=== PATIENT | male | born 1990 | race Caucasian/White ===

== ENCOUNTER 2019-12-05 18:18 | Emergency (ER) | payer OTHER, MEDICAID, SELFPAY ==
[2019-12-05 18:31] VITALS: BP 140/70; PULSE 68; RESP 16; TEMP 36.1; O2SAT 98; BMI 35.9
--- NOTE | 2019-12-05 19:18 | ED.GENADULT ---
HPI - General Adult General Chief complaint: Abdominal Pain Stated complaint: KIDNEY STONES Time Seen by Provider: 12/05/19 18:23 Source: patient Mode of arrival: Ambulatory Limitations: no limitations History of Present Illness HPI narrative: 29-year-old male here for evaluation of what he thinks is a left-sided kidney stone. He states he has never had kidney stones in the past however earlier today he had a fairly sudden onset of left-sided flank pain. Had some nausea and vomiting. No fevers. He stated that when he was waiting in line at the [place] [facility] to come to the hospital for evaluation he went and urinated as stated that he felt like something came out. Since that time he has had some discomfort on the left side but much better than what it was earlier in the day. Related Data Previous Rx's Medication Instructions Recorded cephalexin [Keflex] 500 mg PO QID #28 cap 11/12/16 Allergies Allergy/AdvReac Type Severity Reaction Status Date / Time No Known Allergies Allergy Uncoded 06/17/17 13:02 Review of Systems Constitutional Constitutional: Denies fever(s) Cardiovascular Cardiovascular: Denies chest pain and Denies dyspnea Respiratory Respiratory: Denies dyspnea Gastrointestinal Gastrointestinal: Reports abdominal pain, Denies change in bowel habits, Reports nausea and Reports vomiting Genitourinary Genitourinary: Reports urinary hesitancy and Reports urinary urgency Genitourinary: Reports urinary hesitancy and Reports urinary urgency Musculoskeletal Comments: Left-sided flank pain Integumentary/Breasts Skin/Breast: Denies lesions and Denies rash Neurologic Neurologic: Denies behavioral changes Psychiatric Psychiatric: Denies behavioral changes Hematologic/Lymphatic Hematologic/Lymphatic: Denies easy bleeding and Denies easy bruising Allergic/Immunologic Allergic/Immunologic: Denies urticaria Patient History Medical History Asperger's disorder (08/20/15) Generalized anxiety disorder (08/20/15) Moderate episode of recurrent major depressive disorder (08/20/15) Panic attack (08/20/15) Social History Smoking Status: Never smoker Smoking Status: Never smoker alcohol intake frequency: 0-2 drinks per day Substance Use Type: does not use Exam Initial Vital Signs Initial Vital Signs: Vital Signs Temperature 96.9 F L 12/05/19 18:31 Pulse Rate 68 12/05/19 18:31 Respiratory Rate 16 12/05/19 18:31 Blood Pressure 140/70 12/05/19 18:31 Pulse Oximetry 98 12/05/19 18:31 Const General: cooperative and comfortable Limitations: mental status not altered HENMT Head: normal to inspection and normocephalic Resp Effort & Inspection: normal respiratory effort Auscultation: clear to auscultation bilaterally Cardio Rate: regular rate Rhythm: regular rhythm GI Inspection: non-distended Palpation: soft, No firm and No tender Back/Spine/Pelvis Back: No CVA tenderness Skin Lesions: no lesions Rashes: no rashes Neuro General: patient alert and patient awake Cognition: normal cognition Speech: speech normal Extrem General: normal to inspection and capillary refill normal Psych Appearance: grossly normal and well kempt Course Orders Ordered: ED Orders 12/05/19 19:14 Urine Microscopic Stat 12/05/19 19:18 CT kidney ureter bladder (KUB) Stat 12/05/19 19:27 Basic Metabolic Panel Stat Complete Blood Count AUTO DIFF Stat Vital Signs Vital signs: Vital Signs - 8 hr 12/05/19 18:31 12/05/19 20:08 Temperature 96.9 F L Pulse Rate 68 72 Respiratory Rate 16 14 Blood Pressure 140/70 Pulse Oximetry 98 99 Medical Decision Making Lab Data Lab results reviewed: Yes I reviewed the patient's lab results. Result diagrams: 12/05/19 19:27 12/05/19 19:27 Labs: Lab Results 12/05/19 12/05/19 12/05/19 Range/Units 19:14 19:27 19:27 WBC 14.5 H (4.5-11.0) X10^3/uL RBC 5.38 (4.5-5.9) X10^6/uL Hgb 15.6 (13.5-17.5) g/dL Hct 47.3 (41-53) % MCV 87.9 (80-100) fL MCH 29.1 (26-34) PG MCHC 33.1 (30-36) % RDW 13.7 (11.6-14.8) % Plt Count 192 (150-400) X10^3/uL Neut % (Auto) 78.7 H (50-75) % Lymph % (Auto) 17.2 L (25-40) % [place] % (Auto) 3.4 (3-14) % Eos % (Auto) 0.2 L (2-4) % Baso % (Auto) 0.5 (0-2) % Neut # (Auto) 21415 H (0995-1427) /uL Lymph # (Auto) 2500 (8723-9288) /uL [place] # (Auto) 500 (0-900) /uL Eos # (Auto) 0 (0-450) /uL Baso # (Auto) 100 (0-100) /uL Sodium 139 (137-145) mmol/L Potassium 4.3 (3.4-5.1) mmol/L Chloride 102 (98-107) mmol/L Carbon Dioxide 28 (22-32) mmol/L BUN 12 (9-20) mg/dL Creatinine 0.83 (0.66-1.25) mg/dL Estimated GFR > 60.0 (>60) mL/min BUN/Creatinine Ratio 14.5 (6-22) Glucose 115 H (70-100) mg/dL Calcium 9.4 (8.4-10.2) mg/dL Urine RBC >100/hpf H (0-5/HPF) Urine WBC 0-1/hpf (0-5/HPF) Ur Squamous Epith Cells 0-1 /hpf (0-5/HPF) Urine Bacteria None seen (None) Ur Culture Indicated? Cult not indicated Urine Dip Bedside Urine Glucose Negative Bedside Urine Bilirubin - Negative Bedside Urine Ketone - Negative Urine Specific [place] 1.015 Bedside Urine Occult Blood +++ Bedside Urine pH 7.0 Bedside Urine Protein - Negative Bedside Urine Urobilinogen - Negative Bedside Urine Nitrite - Negative Bedside Urine Leukocytes - Negative Esterase Point of care testing: Urine Dip Bedside Urine Glucose Negative Bedside Urine Bilirubin - Negative Bedside Urine Ketone - Negative Urine Specific [place] 1.015 Bedside Urine Occult Blood +++ Bedside Urine pH 7.0 Bedside Urine Protein - Negative Bedside Urine Urobilinogen - Negative Bedside Urine Nitrite - Negative Bedside Urine Leukocytes - Negative Esterase Imaging Data CT scan - abdomen/pelvis: Radiologist's Impression: [address] [address] [address] Scan Report Signed Patient: Yoni Griffin [facility]#: [id number] : 1990Acct:[id number] Age/Sex: 29 / MDate of Service: 12/05/19 Loc: ED Accession Number: [id number] Procedure: CT kidney ureter bladder (KUB) Ordering Provider: Gennaro Beal D.O. PROCEDURE: CT KIDNEY URETER BLADDER (KUB) INDICATIONS: concern for L sided stone TECHNIQUE: Noncontrast 5 mm thick sections acquired from the diaphragms to the symphysis. 5 mm thick coronal and sagittal reformats were then performed. For radiation dose reduction, the following was used: automated exposure control, adjustment of mA and/or kV according to patient size. COMPARISON: None. FINDINGS: Image quality: Excellent. Lung bases: Lung bases are clear. Heart size is normal. Urinary system: Mild left ureteral dilatation and periureteric fat stranding without obstructing calculus. Right ureter is unremarkable. Both kidneys are normal in appearance. Other solid organs: Moderate to severe hepatic steatosis. Normal appearance of the liver, spleen, gallbladder, pancreas, and adrenal glands otherwise. Peritoneum and bowel: Unenhanced bowel loops demonstrate normal wall thickness and caliber. No free fluid or air. Nodes and vessels: No retroperitoneal or mesenteric adenopathy by size criteria. Aorta and inferior vena cava are normal in caliber. Abdominal wall: No ventral hernias. Pelvis: No free pelvic fluid. No inguinal hernias or adenopathy. Bones: No suspicious bony lesions. No vertebral body compression fractures. IMPRESSION: Trace dilatation of the left ureter with adjacent fat stranding. Findings may represent a recently passed stone. There is no evidence of urinary tract calculus currently. Dictated by: Lele Lopez M.D. on 12/05/2019 at 19:39 Approved by: Lele Lopez M.D. on 12/05/2019 at 19:42 MDM Narrative Medical decision making narrative: Urine shows blood but no signs of infection, kidney functions unremarkable, does have a leukocytosis however feel this is not caused by an infection. No source of infection is found on exam. No fevers. I suspect that he passed the stone when he use the restroom in route to the emergency department. The CT scan shows findings consistent with a recently passed stone on the left. This fits symptoms. Patient was given return precautions and follow-up instructions. I feel we can hold on further workup for now. He expressed understanding and agreement. Discharge Plan Departure Patient Disposition: Home Clinical Impression: Renal colic on left side Discharge Date/Time: 12/05/19 20:09 Instructions: Kidney Stones -- Adult Activity Restrictions/Additional Instructions: I would expect you to be sore for the next day. You can also have some blood tinge to your urine for the next day. All of this should improve. Contact your primary provider for follow-up. Return to the emergency department for any new or worsening symptoms. You have no restrictions on your diet or activity. Prescriptions: No Action cephalexin [Keflex] 500 MG capsule 500 mg PO QID Qty: 28 RF: 0
[2019-12-05 19:33] LABS: Bacteria Urine None Seen
[2019-12-05 19:38] LABS: Add Manual Diff / Slide Review NO; Basophils Absolute Auto 100 /uL (0-100); Basophils Percent Auto 0.5 % (0-2); Eosinophils Absolute Auto 0 /uL (0-450); Eosinophils Percent Auto 0.2 % (2-4); Hematocrit 47.3 % (41-53); Hemoglobin 15.6 g/dL (13.5-17.5); Lymphocytes Absolute Auto 2500 /uL (1100-4500); Lymphocytes Percent Auto 17.2 % (25-40); Mean Corpuscular HGB Conc 33.1 % (30-36); Mean Corpuscular Hemoglobin 29.1 PG (26-34); Mean Corpuscular Volume 87.9 fL (80-100); Monocytes Absolute Auto 500 /uL (0-900); Monocytes Percent Auto 3.4 % (3-14); Neutrophils Absolute Auto 11400 /uL (1500-7000); Neutrophils Percent Auto 78.7 % (50-75); Platelet Count 192 X10^3/uL (150-400); Red Blood Cell Count 5.38 X10^6/uL (4.5-5.9); Red Cell Distribution Width 13.7 % (11.6-14.8); White Blood Cell Count 14.5 X10^3/uL (4.5-11.0)
[2019-12-05 19:48] LABS: Culture Indicated Urine Cult Not Indicated; RBC Urine >100/HPF (0-5/HPF); Squamous Epithelial Cell Urine 0-1 /HPF (0-5/HPF); WBC Urine 0-1/HPF (0-5/HPF)
[2019-12-05 19:49] LABS: BUN Creatinine Ratio 14.5 (6-22); Blood Urea Nitrogen 12 mg/dL (9-20); Calcium 9.4 mg/dL (8.4-10.2); Carbon Dioxide 28 mmol/L (22-32); Chloride 102 mmol/L (98-107); Estimated Glomerular Filt Rate > 60.0 mL/min (>60); Glucose 115 mg/dL (70-100); HEMOLYSIS < 15 (0-50); Potassium 4.3 mmol/L (3.4-5.1); Sodium 139 mmol/L (137-145)
[2019-12-05 20:08] VITALS: PULSE 72; RESP 14; O2SAT 99
== END 2019-12-05 20:09 | disposition home or self-care (01) ==
PROVIDERS: Emergency Provider Emergency Medicine
DX: N23 Unspecified renal colic (principal)
CPT/HCPCS: 36415; 74176; 80048; 81003; 81015; 85025; 99283

== ENCOUNTER 2021-10-27 12:18 | Emergency (ER) | payer OTHER, MEDICAID, SELFPAY ==
[2021-10-27 12:27] VITALS: BP 134/76; PULSE 78; RESP 18; TEMP 36.6; O2SAT 100; BMI 33.5
--- NOTE | 2021-10-27 12:34 | DI.RAD.S_ITS ---
PROCEDURE: XR CHEST 1V INDICATIONS: chest pain TECHNIQUE: One view of the chest was acquired. COMPARISON: None. FINDINGS: Surgical changes and devices: None. Lungs and pleura: Lungs are clear. No pleural effusions or pneumothorax. Mediastinum: Mediastinal contours appear normal. Heart size is normal. Bones and chest wall: No suspicious bony lesions. Overlying soft tissues appear unremarkable. IMPRESSION: No acute cardiopulmonary findings Approved by: Jagjit Rodriguez M.D. on 10/27/2021 at 12:46
[2021-10-27 13:02] LABS: Add Manual Diff / Slide Review NO; Basophils Absolute Auto 100 /uL (0-100); Basophils Percent Auto 0.6 % (0-2); Eosinophils Absolute Auto 400 /uL (0-450); Eosinophils Percent Auto 3.3 % (2-4); Hematocrit 46.9 % (41-53); Hemoglobin 16.1 g/dL (13.5-17.5); Lymphocytes Absolute Auto 3200 /uL (1100-4500); Lymphocytes Percent Auto 30.1 % (25-40); Mean Corpuscular HGB Conc 34.2 % (30-36); Mean Corpuscular Hemoglobin 29.6 PG (26-34); Mean Corpuscular Volume 86.4 fL (80-100); Monocytes Absolute Auto 600 /uL (0-900); Monocytes Percent Auto 5.4 % (3-14); Neutrophils Absolute Auto 6500 /uL (1500-7000); Neutrophils Percent Auto 60.6 % (50-75); Platelet Count 165 X10^3/uL (150-400); Red Blood Cell Count 5.43 X10^6/uL (4.5-5.9); Red Cell Distribution Width 13.4 % (11.6-14.8); White Blood Cell Count 10.7 X10^3/uL (4.5-11.0)
[2021-10-27 13:09] LABS: Alanine Aminotransferase 55 IU/L (<50); Albumin 4.7 g/dL (3.5-5.0); Albumin Globulin Ratio 1.3 (1.0-2.8); Alkaline Phosphatase 81 U/L (38-126); Aspartate Aminotransferase 44 IU/L (17-59); Bilirubin Total 1.1 mg/dL (0.2-1.3); Blood Urea Nitrogen 12 mg/dL (9-20); Calcium 9.2 mg/dL (8.4-10.2); Carbon Dioxide 23 mmol/L (22-32); Chloride 105 mmol/L (98-107); Creatine Kinase 57 U/L (55-170); Estimated Glomerular Filt Rate > 60 mL/min (>60); Globulin 3.6 g/dL (1.7-4.1); Glucose 111 mg/dL (70-100); Lipase 65 U/L (23-300); Sodium 141 mmol/L (137-145); Total Protein 8.3 g/dL (6.3-8.2)
[2021-10-27 13:13] LABS: HEMOLYSIS 105 (0-50)
[2021-10-27 13:21] LABS: Troponin I < 0.012 ng/mL (0.01-0.034)
[2021-10-27 16:07] VITALS: BP 158/96; PULSE 61; RESP 18; O2SAT 100
--- NOTE | 2021-10-27 16:34 | ED_ITS ---
HPI - Chest Pain <Sinan Al PA-C - Last Filed: 10/27/21 20:04> General Chief Complaint: Chest Pain Stated Complaint: Chest Discomfort Time Seen by Provider: 10/27/21 13:37 Source: patient Mode of arrival: Ambulatory Limitations: no limitations History of Present Illness HPI narrative: Patient is a 31-year-old male who presents to the emergency room today with complaint discomfort that started yesterday afternoon while he was at an event in with his mother. Describes the discomfort as a tightness in his chest it was not pain and did not radiate. [place] like something was there yet to breathe around. Called EMT at about 5:00 p.m. and the EMT arrived and evaluated him. Did not receive any of the medicines for pain and the discomfort totally resolved after BMT left. Now feels fine has no discomfort difficulty breathing with labs or concerns. Denies history of cardiac disease or this type of chest discomfort and has. Does admit to having low dad are and 1/2 brother with heart disease. Denies any other concerns at this time. Related Data Previous Rx's Medication Instructions Recorded cephalexin 500 mg capsule (Keflex) 500 mg PO QID #28 caps 11/12/16 Allergies Allergy/AdvReac Type Severity Reaction Status Date / Time No Known Allergies Allergy Uncoded 06/17/17 13:02 Review of Systems <Sinan Al PA-C - Last Filed: 10/27/21 20:04> Review of Systems Narrative: R.O.S.: General: No fever, chills or fatigue. Cardiovascular: No chest pain or palpitations Respiratory: No S.O.B. HEENT: No congestion, ear pain, rhinorrhea, sore throat or tinnitus Gastrointestinal: No nausea or vomiting Skin: No rash or associated abnormalities Neurological: Awake, alert and in not apparent distress. No Headaches, changes in vision or other related neurological concerns. Patient History <Sinan Al PA-C - Last Filed: 10/27/21 20:04> Medical History (Updated 10/27/21 @ 17:33 by Sinan Al PA-C) Asperger's disorder (08/20/15) Generalized anxiety disorder (08/20/15) Moderate episode of recurrent major depressive disorder (08/20/15) Panic attack (08/20/15) Social History Smoking Status: Never smoker Smoking Status: Never smoker alcohol intake frequency: 0-2 drinks per day Substance Use Type: does not use Exam <Sinan Al PA-C - Last Filed: 10/27/21 20:04> Narrative Exam Narrative: Physical Exam: ? General: normal appearance, well developed, well nourished, alert, and awake. Not in acute distress. ? Head: Normocephalic, no lesions. Chest: Lungs CTAB, no rales, rhonchi or wheezes. ?? Heart: RRR, no murmurs, rubs or gallops. Eyes: PERRLA, EOM's full, conjunctivae clear. ? Neuro: Physiological, no localizing findings, CN3-12 intact. ?? Extremities: Warm, well perfused, FROM, no deformities, no edema. ?? Skin: Normal, no rashes, no lesions noted. ?? PSYCHIATRIC: The mood is good, no blunted affect. Speech is clear. Thought process is linear, thought content is appropriate. The voice is without significant inflection. Initial Vital Signs Initial Vital Signs: Vital Signs Temperature 97.8 F 10/27/21 12:27 Pulse Rate 78 10/27/21 12:27 Respiratory Rate 18 10/27/21 12:27 Blood Pressure 134/76 10/27/21 12:27 Pulse Oximetry 100 10/27/21 12:27 Oxygen Delivery Method 10/27/21 12:27 <Donald Torres DO - Last Filed: 10/29/21 13:16> Initial Vital Signs Initial Vital Signs: Vital Signs Temperature 97.8 F 10/27/21 12:27 Pulse Rate 78 10/27/21 12:27 Respiratory Rate 18 10/27/21 12:27 Blood Pressure 134/76 10/27/21 12:27 Pulse Oximetry 100 10/27/21 12:27 Oxygen Delivery Method 10/27/21 12:27 Course <Sinan Al PA-C - Last Filed: 10/27/21 20:04> Orders Ordered: ED Orders 10/27/21 12:34 XR chest 1V Stat 10/27/21 12:41 Complete Blood Count AUTO DIFF Stat Comprehensive Metabolic Panel Stat Lipase Stat Magnesium Stat Troponin & CK Cardiac Panel Stat 10/27/21 12:55 EKG-12 Lead Stat Vital Signs Vital signs: Vital Signs - 8 hr 10/27/21 12:27 10/27/21 16:07 10/27/21 16:50 Temperature 97.8 F Pulse Rate 78 61 67 Respiratory Rate 18 18 18 Blood Pressure 134/76 158/96 H 124/95 H Pulse Oximetry 100 100 100 Oxygen Delivery Method Room Air Room Air Room Air 10/27/21 18:05 Temperature Pulse Rate 60 Respiratory Rate 16 Blood Pressure 150/85 H Pulse Oximetry 99 Oxygen Delivery Method Room Air <Donald Torres DO - Last Filed: 10/29/21 13:16> Orders Ordered: ED Orders 10/27/21 12:34 XR chest 1V Stat 10/27/21 12:41 Complete Blood Count AUTO DIFF Stat Comprehensive Metabolic Panel Stat Lipase Stat Magnesium Stat Troponin & CK Cardiac Panel Stat 10/27/21 12:55 EKG-12 Lead Stat Vital Signs Vital signs: Vital Signs - 8 hr 10/27/21 12:27 10/27/21 16:07 10/27/21 16:50 Temperature 97.8 F Pulse Rate 78 61 67 Respiratory Rate 18 18 18 Blood Pressure 134/76 158/96 H 124/95 H Pulse Oximetry 100 100 100 Oxygen Delivery Method Room Air Room Air Room Air 10/27/21 18:05 Temperature Pulse Rate 60 Respiratory Rate 16 Blood Pressure 150/85 H Pulse Oximetry 99 Oxygen Delivery Method Room Air MDM - Chest Pain <Sinan Al PA-C - Last Filed: 10/27/21 20:04> Lab Data Result diagrams: 10/27/21 12:41 10/27/21 12:41 Labs: Lab Results 10/27/21 10/27/21 Range/Units 12:41 12:41 WBC 10.7 (4.5-11.0) X10^3/uL RBC 5.43 (4.5-5.9) X10^6/uL Hgb 16.1 (13.5-17.5) g/dL Hct 46.9 (41-53) % MCV 86.4 (80-100) fL MCH 29.6 (26-34) PG MCHC 34.2 (30-36) % RDW 13.4 (11.6-14.8) % Plt Count 165 (150-400) X10^3/uL Neut % (Auto) 60.6 (50-75) % Lymph % (Auto) 30.1 (25-40) % [place] % (Auto) 5.4 (3-14) % Eos % (Auto) 3.3 (2-4) % Baso % (Auto) 0.6 (0-2) % Neut # (Auto) 6500 (8409-4395) /uL Lymph # (Auto) 3200 (6868-4797) /uL [place] # (Auto) 600 (0-900) /uL Eos # (Auto) 400 (0-450) /uL Baso # (Auto) 100 (0-100) /uL Sodium 141 (137-145) mmol/L Potassium 5.0 (3.4-5.1) mmol/L Chloride 105 (98-107) mmol/L Carbon Dioxide 23 (22-32) mmol/L BUN 12 (9-20) mg/dL Creatinine 0.75 (0.66-1.25) mg/dL Estimated GFR > 60 (>60) mL/min BUN/Creatinine Ratio 16.0 (6-22) Glucose 111 H (70-100) mg/dL Calcium 9.2 (8.4-10.2) mg/dL Magnesium 2.0 (1.6-2.3) mg/dL Total Bilirubin 1.1 (0.2-1.3) mg/dL AST 44 (17-59) IU/L ALT 55 H (<50) IU/L Alkaline Phosphatase 81 (38-126) U/L Total Creatine Kinase 57 (55-170) U/L CK-MB (CK-2) TNP CK-MB (CK-2) Rel Index TNP Troponin I < 0.012 (0.01-0.034) ng/mL Total Protein 8.3 H (6.3-8.2) g/dL Albumin 4.7 (3.5-5.0) g/dL Globulin 3.6 (1.7-4.1) g/dL Albumin/Globulin Ratio 1.3 (1.0-2.8) Lipase 65 (23-300) U/L Imaging Data Chest x-ray: Radiologist's Impression: PROCEDURE:? XR CHEST 1V ? INDICATIONS:? chest pain ? TECHNIQUE:? One view of the chest was acquired.? ? COMPARISON:? None. ? FINDINGS:? ? Surgical changes and devices:? None.? ? Lungs and pleura:? Lungs are clear.? No pleural effusions or pneumothorax.? ? Mediastinum:? Mediastinal contours appear normal.? Heart size is normal.? ? Bones and chest wall:? No suspicious bony lesions.? Overlying soft tissues appear unremarkable.? ? IMPRESSION:? No acute cardiopulmonary findings ? ? ? Approved by: Jagjit Rodriguez M.D. on 10/27/2021 at 12:46? MDM Narrative Medical decision making narrative: Patient is a 31-year-old male who presents to the emergency room today with complaint of resolved chest discomfort. Chest discomfort starting yesterday around 3:00 p.m. paramedics were called no interventions were done except for diagnostics in physical exam. Patient reports to the emergency room today because he was told to follow up in emergency room by the paramedics. Otherwise has no concerns. Chest from today an impression of no acute cardiopulmonary findings. ECG was unremarkable with NSR. Physical exam was unremarkable. Patient is to history of anxiety and depression could have been associated with this event. Advised patient to follow-up with his PCP for any non urgent emerge nt concerns. Patient advised to return to the emergency room should any emergent concerns arise. To include shortness of breath or her chest pain. Patient agrees with plan. <Donald Torres, DO - Last Filed: 10/29/21 13:16> Lab Data Labs: Lab Results 10/27/21 10/27/21 Range/Units 12:41 12:41 WBC 10.7 (4.5-11.0) X10^3/uL RBC 5.43 (4.5-5.9) X10^6/uL Hgb 16.1 (13.5-17.5) g/dL Hct 46.9 (41-53) % MCV 86.4 (80-100) fL MCH 29.6 (26-34) PG MCHC 34.2 (30-36) % RDW 13.4 (11.6-14.8) % Plt Count 165 (150-400) X10^3/uL Neut % (Auto) 60.6 (50-75) % Lymph % (Auto) 30.1 (25-40) % [place] % (Auto) 5.4 (3-14) % Eos % (Auto) 3.3 (2-4) % Baso % (Auto) 0.6 (0-2) % Neut # (Auto) 6500 (9782-2412) /uL Lymph # (Auto) 3200 (3504-3904) /uL [place] # (Auto) 600 (0-900) /uL Eos # (Auto) 400 (0-450) /uL Baso # (Auto) 100 (0-100) /uL Sodium 141 (137-145) mmol/L Potassium 5.0 (3.4-5.1) mmol/L Chloride 105 (98-107) mmol/L Carbon Dioxide 23 (22-32) mmol/L BUN 12 (9-20) mg/dL Creatinine 0.75 (0.66-1.25) mg/dL Estimated GFR > 60 (>60) mL/min BUN/Creatinine Ratio 16.0 (6-22) Glucose 111 H (70-100) mg/dL Calcium 9.2 (8.4-10.2) mg/dL Magnesium 2.0 (1.6-2.3) mg/dL Total Bilirubin 1.1 (0.2-1.3) mg/dL AST 44 (17-59) IU/L ALT 55 H (<50) IU/L Alkaline Phosphatase 81 (38-126) U/L Total Creatine Kinase 57 (55-170) U/L CK-MB (CK-2) TNP CK-MB (CK-2) Rel Index TNP Troponin I < 0.012 (0.01-0.034) ng/mL Total Protein 8.3 H (6.3-8.2) g/dL Albumin 4.7 (3.5-5.0) g/dL Globulin 3.6 (1.7-4.1) g/dL Albumin/Globulin Ratio 1.3 (1.0-2.8) Lipase 65 (23-300) U/L Discharge Plan Departure Patient Disposition: Home Clinical Impression: Atypical chest pain Instructions: DI for Chest Pain Activity Restrictions/Additional Instructions: *You have been diagnosed with [resolved chest discomfort of unknown etiology.] During your stay today in the emergency room we ordered receive the results from chest film and labs are negative in relation to the origin of his chest discomfort. Physical exam was also unremarkable. Per our discussion I suggest you follow-up with your the care provider with any non urgent emergent concerns. I suggested he return to the emergency room should any emergent concerns arise to include return of chest discomfort shortness of breath difficulty ascending or descending stairs or any other related concerns. *What to do: *Please continue to take your regular medications as directed. [ ] New medication prescriptions sent to your pharmacy: [ ] [ ] New medication written as a paper prescription [x] No new medications given *Please follow up with your primary care provider in 2-3 days, call for an appointment. Let them know you were seen in the Emergency Department and that we ask that you be seen in follow up. We will electronically transmit a record of today's note if your PCP is in our system *If you do not have a primary care provider please contact the [facility] Resource line at [phone]. They will ask some questions about your medical history and help get you set up with a doctor in the community. *Return to Emergency Department if you should have any new, worsening or concerning symptoms, such as [fever greater than 101 F, shaking chills, worsening pain, persistent vomiting or other bothersome symptoms] Prescriptions: No Action cephalexin [Keflex] 500 MG capsule 500 mg PO QID Qty: 28 0RF Referrals: Aliyah Zimmerman ARNP [Primary Care Provider] - Visit Report Forms: Patient Portal/API <Donald Torres DO - Last Filed: 10/29/21 13:16> [facility] Isaura Attestation: I was immediately available in the department for consultation. Documentation has been reviewed. I agree with assessment and plan.
[2021-10-27 16:50] VITALS: BP 124/95; PULSE 67; RESP 18; O2SAT 100
--- NOTE | 2021-10-27 18:04 | PC.NURSE ---
assessment done by provider
[2021-10-27 18:05] VITALS: BP 150/85; PULSE 60; RESP 16; O2SAT 99
== END 2021-10-27 18:07 | disposition home or self-care (01) ==
PROVIDERS: Emergency Medicine; Emergency Provider Physician Assistant; PCP Nurse Practitioner
DX: R07.89 Other chest pain (principal)
CPT/HCPCS: 71045; 80053; 82550; 83690; 83735; 84484; 85025; 93005; 99283; 99284

== ENCOUNTER 2022-10-23 11:14 | Emergency (ER) | payer OTHER, MEDICAID, SELFPAY ==
[2022-10-23] VITALS (10 sets, daily range): BP systolic 132–145; BP diastolic 65–82; PULSE 56–69; RESP 15; TEMP 36.3; O2SAT 98–99; BMI 37.3
--- NOTE | 2022-10-23 11:19 | DI.RAD.S_ITS ---
PROCEDURE: XR CHEST 1V INDICATIONS: chest pain TECHNIQUE: One view of the chest was acquired. COMPARISON: [facility], CR, XR CHEST 1V, 10/27/2021, 12:46. FINDINGS: Surgical changes and devices: None. Lungs and pleura: Lungs are clear. No pleural effusions or pneumothorax. Mediastinum: Mediastinal contours appear normal. Heart size is normal. Bones and chest wall: No suspicious bony lesions. Overlying soft tissues appear unremarkable. IMPRESSION: No acute cardiopulmonary process. Dictated by: Joselito Ledezma M.D. on 10/23/2022 at 11:57 Approved by: Joselito Ledezma M.D. on 10/23/2022 at 11:58
--- NOTE | 2022-10-23 11:26 | ED.CHESTPAIN ---
HPI - Chest Pain General Chief Complaint: Chest Pain Stated Complaint: chest discomfort t-1 Time Seen by Provider: 10/23/22 11:26 Source: patient Mode of arrival: Ambulatory Limitations: no limitations Related Data Previous Rx's Medication Instructions Recorded cephalexin 500 mg capsule (Keflex) 500 mg PO QID #28 caps 11/12/16 Allergies Allergy/AdvReac Type Severity Reaction Status Date / Time No Known Drug Allergies Allergy Verified 10/23/22 11:17 Patient History Medical History (Updated 11/11/21 @ 00:00 by ) Asperger's disorder (08/20/15) Generalized anxiety disorder (08/20/15) Moderate episode of recurrent major depressive disorder (08/20/15) Panic attack (08/20/15) Social History Smoking Status: Never smoker Smoking Status: Never smoker alcohol intake frequency: holidays/special occasions only Substance Use Type: does not use Exam Initial Vital Signs Initial Vital Signs: Vital Signs Temperature 97.3 F L 10/23/22 11:17 Pulse Rate 69 10/23/22 11:17 Respiratory Rate 15 10/23/22 11:17 Blood Pressure 134/72 10/23/22 11:17 Pulse Oximetry 99 10/23/22 11:17 Oxygen Delivery Method Room Air 10/23/22 11:17 Course Orders Ordered: ED Orders 10/23/22 11:19 XR chest 1V Stat Complete Blood Count AUTO DIFF Stat Comprehensive Metabolic Panel Stat Lipase Stat Magnesium Stat PTT Partial Thromboplastin [place] Stat Prothrombin Time INR Stat Troponin & CK Cardiac Panel Stat EKG-12 Lead Stat Discontinued Medications Aspirin (Aspirin 81 Mg Chew Tab) 324 mg PO NOW ONE Stop: 10/23/22 11:20 Vital Signs Vital signs: Vital Signs - 8 hr 10/23/22 11:17 Temperature 97.3 F L Pulse Rate 69 Respiratory Rate 15 Blood Pressure 134/72 Pulse Oximetry 99 Oxygen Delivery Method Room Air Discharge Plan Departure Prescriptions: No Action cephalexin [Keflex] 500 MG capsule 500 mg PO QID Qty: 28 0RF Referrals: Aliyah Zimmerman ARNP [Primary Care Provider] -
[2022-10-23 11:38] LABS: Add Manual Diff / Slide Review NO; Basophils Absolute Auto 100 /uL (0-100); Eosinophils Absolute Auto 400 /uL (0-450); Eosinophils Percent Auto 3.7 % (2-4); Hematocrit 45.3 % (41-53); Hemoglobin 15.1 g/dL (13.5-17.5); Lymphocytes Absolute Auto 3600 /uL (1100-4500); Lymphocytes Percent Auto 31.7 % (25-40); Mean Corpuscular HGB Conc 33.5 % (30-36); Mean Corpuscular Hemoglobin 28.8 PG (26-34); Mean Corpuscular Volume 86.1 fL (80-100); Monocytes Absolute Auto 600 /uL (0-900); Monocytes Percent Auto 5.5 % (3-14); Neutrophils Absolute Auto 6600 /uL (1500-7000); Neutrophils Percent Auto 58.1 % (50-75); Platelet Count 177 X10^3/uL (150-400); Red Blood Cell Count 5.26 X10^6/uL (4.5-5.9); Red Cell Distribution Width 13.7 % (11.6-14.8); White Blood Cell Count 11.4 X10^3/uL (4.5-11.0)
[2022-10-23 11:45] LABS: INR 1.1 (0.9-1.3); Prothrombin Time 12.5 SECONDS (10.1-12.7)
[2022-10-23 11:47] LABS: PTT Partial Thromboplastin Tim 35 SECONDS (26-36)
[2022-10-23 11:49] LABS: Alanine Aminotransferase 64 IU/L (<50); Albumin 4.4 g/dL (3.5-5.0); Albumin Globulin Ratio 1.4 (1.0-2.8); Alkaline Phosphatase 83 U/L (38-126); Aspartate Aminotransferase 43 IU/L (17-59); BUN Creatinine Ratio 14.8 (6-22); Bilirubin Total 0.7 mg/dL (0.2-1.3); Blood Urea Nitrogen 12 mg/dL (9-20); Calcium 9.1 mg/dL (8.4-10.2); Carbon Dioxide 28 mmol/L (22-32); Chloride 105 mmol/L (98-107); Creatine Kinase 29 U/L (55-170); Estimated Glomerular Filt Rate > 60 mL/min (>60); Globulin 3.1 g/dL (1.7-4.1); Glucose 120 mg/dL (70-100); HEMOLYSIS < 15 (0-50); Lipase 69 U/L (23-300); Magnesium 2.2 mg/dL (1.6-2.3); Potassium 4.1 mmol/L (3.4-5.1); Sodium 140 mmol/L (137-145); Total Protein 7.5 g/dL (6.3-8.2)
[2022-10-23 12:01] LABS: Troponin I < 0.012 ng/mL (0.01-0.034)
[2022-10-23 14:43] LABS: Troponin I < 0.012 ng/mL (0.01-0.034)
--- NOTE | 2022-10-23 16:28 | ED_ITS ---
HPI - Chest Pain <ALONDRA Jarrett - Last Filed: 10/23/22 17:22> General Chief Complaint: Chest Pain Stated Complaint: chest discomfort t-1 Time Seen by Provider: 10/23/22 11:26 Source: patient Mode of arrival: Ambulatory Limitations: no limitations History of Present Illness HPI narrative: This is a 32-year-old gentleman who presents to the emergency department today for increasing panic attacks, states that today he had an episode where he had chest pain, felt short of breath reports it felt like a gas bubble but sat there causing pain for awhile. He states it started yesterday, it is mostly gone away but still persists slightly. He denies nausea vomiting, denies shortness of breath or dizziness, suicide has a family history of cardiac problems and this is what triggered his worry. He states that he takes sertraline for his mood and has been on this for a long time without a dose change. He has a therapist and has been talking a them lately, endorses that his cat is elderly and has been having a hard time with that. Related Data Previous Rx's Medication Instructions Recorded cephalexin 500 mg capsule (Keflex) 500 mg PO QID #28 caps 11/12/16 alprazolam 0.5 mg tablet 0.5 mg PO BID PRN anxiety #14 tabs 10/23/22 omeprazole 20 mg capsule,delayed 20 mg PO DAILY #30 caps 10/23/22 release Allergies Allergy/AdvReac Type Severity Reaction Status Date / Time No Known Drug Allergies Allergy Verified 10/23/22 11:17 Review of Systems <ALONDRA Jarrett - Last Filed: 10/23/22 17:22> Review of Systems ROS Unobtainable: All systems reviewed & are unremarkable except as noted in HPI and below Patient History <ALONDRA Jarrett - Last Filed: 10/23/22 17:22> Medical History Asperger's disorder (08/20/15) Generalized anxiety disorder (08/20/15) Moderate episode of recurrent major depressive disorder (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 General: Pleasant, sitting upright, in no acute distress, well groomed, afebrile HEENT: symmetrical facial expressions, moist mucous membranes, neck is supple CV: regular rate and rhythm, warm extremities, pain is reproducible with deep inspiration, palpation of the epigastrium, patient has normal heart sounds and strong pulses to bilateral lower extremity, warm soreness to without arrhythmia Respiratory: normal work of breathing, without tachypnea or hypoxia. GI: abdomen soft, nondistended, without CVA tenderness bilaterally. MSK: moves all extremities, no weakness, normal tone, ambulatory without deficit Skin: brisk capillary refill, without rash or wound Neuro: clear speech and normal cognition, A&O x3, GCS 15, no focal motor or sensation deficits Initial Vital Signs Initial Vital Signs: Vital Signs Temperature 97.3 F L 10/23/22 11:17 Pulse Rate 69 10/23/22 11:17 Respiratory Rate 15 10/23/22 11:17 Blood Pressure 134/72 10/23/22 11:17 Pulse Oximetry 99 10/23/22 11:17 Oxygen Delivery Method Room Air 10/23/22 11:17 <Yuko Kim DO - Last Filed: 11/02/22 01:43> Initial Vital Signs Initial Vital Signs: Vital Signs Temperature 97.3 F L 10/23/22 11:17 Pulse Rate 69 10/23/22 11:17 Respiratory Rate 15 10/23/22 11:17 Blood Pressure 134/72 10/23/22 11:17 Pulse Oximetry 99 10/23/22 11:17 Oxygen Delivery Method Room Air 10/23/22 11:17 Course <ALONDRA Jarrett - Last Filed: 10/23/22 17:22> Orders Ordered: Discontinued Medications Alprazolam (Alprazolam 0.5 Mg Tablet) 0.5 mg PO NOW ONE Stop: 10/23/22 16:50 Last Admin: 10/23/22 17:09 Dose: 0.5 mg Documented By: ANITHA Aspirin (Aspirin 81 Mg Chew Tab) 324 mg PO NOW ONE Stop: 10/23/22 11:20 Pantoprazole Sodium (Pantoprazole Dr 20 Mg Tablet) 20 mg PO NOW ONE Stop: 10/23/22 16:51 Last Admin: 10/23/22 17:09 Dose: 20 mg Documented By: ANITHA Vital Signs Vital signs: Vital Signs - 8 hr 10/23/22 11:17 10/23/22 14:35 10/23/22 14:36 Temperature 97.3 F L Pulse Rate 69 66 Respiratory Rate 15 Blood Pressure 134/72 137/75 Pulse Oximetry 99 99 Oxygen Delivery Method Room Air 10/23/22 15:00 10/23/22 15:00 10/23/22 15:30 Temperature Pulse Rate 66 Respiratory Rate Blood Pressure 132/70 145/70 H Pulse Oximetry 99 Oxygen Delivery Method 10/23/22 15:30 10/23/22 16:00 10/23/22 16:01 Temperature Pulse Rate 66 62 Respiratory Rate Blood Pressure 143/65 H Pulse Oximetry 99 99 Oxygen Delivery Method 10/23/22 16:01 Temperature Pulse Rate 60 Respiratory Rate Blood Pressure Pulse Oximetry 99 Oxygen Delivery Method <Yuko Kim, - Last Filed: 11/02/22 01:43> Orders Ordered: Discontinued Medications Alprazolam (Alprazolam 0.5 Mg Tablet) 0.5 mg PO NOW ONE Stop: 10/23/22 16:50 Last Admin: 10/23/22 17:09 Dose: 0.5 mg Documented By: ANITHA Aspirin (Aspirin 81 Mg Chew Tab) 324 mg PO NOW ONE Stop: 10/23/22 11:20 Pantoprazole Sodium (Pantoprazole Dr 20 Mg Tablet) 20 mg PO NOW ONE Stop: 10/23/22 16:51 Last Admin: 10/23/22 17:09 Dose: 20 mg Documented By: ANITHA Vital Signs Vital signs: Vital Signs - 8 hr 10/23/22 11:17 10/23/22 14:35 10/23/22 14:36 Temperature 97.3 F L Pulse Rate 69 66 Respiratory Rate 15 Blood Pressure 134/72 137/75 Pulse Oximetry 99 99 Oxygen Delivery Method Room Air 10/23/22 15:00 10/23/22 15:00 10/23/22 15:30 Temperature Pulse Rate 66 Respiratory Rate Blood Pressure 132/70 145/70 H Pulse Oximetry 99 Oxygen Delivery Method 10/23/22 15:30 10/23/22 16:00 10/23/22 16:01 Temperature Pulse Rate 66 62 Respiratory Rate Blood Pressure 143/65 H Pulse Oximetry 99 99 Oxygen Delivery Method 10/23/22 16:01 Temperature Pulse Rate 60 Respiratory Rate Blood Pressure Pulse Oximetry 99 Oxygen Delivery Method MDM - Chest Pain <MAGGIE JarrettP - Last Filed: 10/23/22 17:22> Lab Data 10/23/22 11:31 10/23/22 11:31 Labs: Lab Results 10/23/22 10/23/22 10/23/22 Range/Units 11:31 11:31 11:31 WBC 11.4 H (4.5-11.0) X10^3/uL RBC 5.26 (4.5-5.9) X10^6/uL Hgb 15.1 (13.5-17.5) g/dL Hct 45.3 (41-53) % MCV 86.1 (80-100) fL MCH 28.8 (26-34) PG MCHC 33.5 (30-36) % RDW 13.7 (11.6-14.8) % Plt Count 177 (150-400) X10^3/uL Neut % (Auto) 58.1 (50-75) % Lymph % (Auto) 31.7 (25-40) % [place] % (Auto) 5.5 (3-14) % Eos % (Auto) 3.7 (2-4) % Baso % (Auto) 1.0 (0-2) % Neut # (Auto) 6600 (5343-0670) /uL Lymph # (Auto) 3600 (1360-6458) /uL [place] # (Auto) 600 (0-900) /uL Eos # (Auto) 400 (0-450) /uL Baso # (Auto) 100 (0-100) /uL PT 12.5 (10.1-12.7) SECONDS INR 1.1 (0.9-1.3) APTT 35 (26-36) SECONDS Sodium 140 (137-145) mmol/L Potassium 4.1 (3.4-5.1) mmol/L Chloride 105 (98-107) mmol/L Carbon Dioxide 28 (22-32) mmol/L BUN 12 (9-20) mg/dL Creatinine 0.81 (0.66-1.25) mg/dL Estimated GFR > 60 (>60) mL/min BUN/Creatinine Ratio 14.8 (6-22) Glucose 120 H (70-100) mg/dL Calcium 9.1 (8.4-10.2) mg/dL Magnesium 2.2 (1.6-2.3) mg/dL Total Bilirubin 0.7 (0.2-1.3) mg/dL AST 43 (17-59) IU/L ALT 64 H (<50) IU/L Alkaline Phosphatase 83 (38-126) U/L Total Creatine Kinase 29 L (55-170) U/L Troponin I < 0.012 (0.01-0.034) ng/mL Total Protein 7.5 (6.3-8.2) g/dL Albumin 4.4 (3.5-5.0) g/dL Globulin 3.1 (1.7-4.1) g/dL Albumin/Globulin Ratio 1.4 (1.0-2.8) Lipase 69 (23-300) U/L / Range/Units 14:10 WBC (4.5-11.0) X10^3/uL RBC (4.5-5.9) X10^6/uL Hgb (13.5-17.5) g/dL Hct (41-53) % MCV (80-100) fL MCH (26-34) PG MCHC (30-36) % RDW (11.6-14.8) % Plt Count (150-400) X10^3/uL Neut % (Auto) (50-75) % Lymph % (Auto) (25-40) % [place] % (Auto) (3-14) % Eos % (Auto) (2-4) % Baso % (Auto) (0-2) % Neut # (Auto) (4635-9501) /uL Lymph # (Auto) (0054-4769) /uL [place] # (Auto) (0-900) /uL Eos # (Auto) (0-450) /uL Baso # (Auto) (0-100) /uL PT (10.1-12.7) SECONDS INR (0.9-1.3) APTT (26-36) SECONDS Sodium (137-145) mmol/L Potassium (3.4-5.1) mmol/L Chloride (98-107) mmol/L Carbon Dioxide (22-32) mmol/L BUN (9-20) mg/dL Creatinine (0.66-1.25) mg/dL Estimated GFR (>60) mL/min BUN/Creatinine Ratio (6-22) Glucose (70-100) mg/dL Calcium (8.4-10.2) mg/dL Magnesium (1.6-2.3) mg/dL Total Bilirubin (0.2-1.3) mg/dL AST (17-59) IU/L ALT (<50) IU/L Alkaline Phosphatase (38-126) U/L Total Creatine Kinase (55-170) U/L Troponin I < 0.012 (0.01-0.034) ng/mL Total Protein (6.3-8.2) g/dL Albumin (3.5-5.0) g/dL Globulin (1.7-4.1) g/dL Albumin/Globulin Ratio (1.0-2.8) Lipase (23-300) U/L Imaging Data Chest x-ray: Radiologist's Impression: [address] [address] XRay Report Signed Patient: Yoni Griffin MR#: [id number] : 1990 Acct:[id number] Age/Sex: 32 / M Date of Service: 10/23/22 Loc: ED Accession Number: [id number] ?? Procedure: XR chest 1V Ordering Provider: Yuko Kim D.O. PROCEDURE:? XR CHEST 1V ? INDICATIONS:? chest pain ? TECHNIQUE:? One view of the chest was acquired.? ? COMPARISON:? [facility], CR, XR CHEST 1V, 10/27/2021, 12:46. ? FINDINGS:? ? Surgical changes and devices:? None.? ? Lungs and pleura:? Lungs are clear.? No pleural effusions or pneumothorax.? ? Mediastinum:? Mediastinal contours appear normal.? Heart size is normal.? ? Bones and chest wall:? No suspicious bony lesions.? Overlying soft tissues appear unremarkable.? ? IMPRESSION:? No acute cardiopulmonary process. ? ? ? Dictated by: Joselito Ledezma M.D. on 10/23/2022 at 11:57 ? ? Approved by: Joselito Ledezma M.D. on 10/23/2022 at 11:58 ? ECG Data Interpretation: EKG independently reviewed by myself at [1700] Dr. Kim saw this EKG at 11:23, reveals normal sinus rhythm at [63] bpm with regular axis and intervals. No STEMI, ST segment changes, arrhythmia, or acute ischemic changes. EKG independently reviewed by myself at [1700] Dr. Kim saw this patient's ECG at 1417 reveals normal sinus rhythm at [61] bpm with regular axis and intervals. No STEMI, ST segment changes, arrhythmia, or acute ischemic changes. MDM Narrative Medical decision making narrative: Chief Complaint: Chest wall pain, anxiety, dyspepsia Multiple etiologies for patient's complaint considered including, but not limited to: ACS, panic disorder, mood disorder, anxiety reaction to acute stressor, GERD, cholelithiasis, gastritis, reflux esophagitis I have independently reviewed the patient's vital signs and nursing notes as well as prior records if available. Plan: I assumed care of this patient after I was asked to see this patient at 1645, patient has been waiting for several hours to be seen. He is not in any distress. His symptoms sound gradual and related to his mood disorder. He takes sertraline at baseline, he has a therapist, and some acute life stressors. We discussed coping strategies and how to improve them, I want him to follow- up with his PCP and discuss his sertraline dosing as he may benefit from slight increase of his dose. I gave him 1 dose of alprazolam as this is something he is tolerated in the past and gave him a short prescription of this to use at home. He understands to follow-up and initiate positive coping strategies the next time his symptoms,. There are no significant findings with his lab work, troponins are negative, EKGs are without ST changes. We discussed patient's mood at length and he will follow up with primary care provider, he is given a prescription alprazolam to use in the interim, encouraged to use positive coping mechanisms and [place] back to his primary care provider. Social considerations that may affect disposition: none Questions are addressed and there is agreement with the plan and for follow-up. I consulted with the ED attending physician Dr. Kim as needed for higher level of care considerations and they were available for discussion and recommendations regarding plan of care and diagnostic testing. Patient is appropriate for outpatient management. <Yuko Kim, DO - Last Filed: 11/02/22 01:43> Lab Data Labs: Lab Results 10/23/22 10/23/22 10/23/22 Range/Units 11:31 11:31 11:31 WBC 11.4 H (4.5-11.0) X10^3/uL RBC 5.26 (4.5-5.9) X10^6/uL Hgb 15.1 (13.5-17.5) g/dL Hct 45.3 (41-53) % MCV 86.1 (80-100) fL MCH 28.8 (26-34) PG MCHC 33.5 (30-36) % RDW 13.7 (11.6-14.8) % Plt Count 177 (150-400) X10^3/uL Neut % (Auto) 58.1 (50-75) % Lymph % (Auto) 31.7 (25-40) % [place] % (Auto) 5.5 (3-14) % Eos % (Auto) 3.7 (2-4) % Baso % (Auto) 1.0 (0-2) % Neut # (Auto) 6600 (5880-9211) /uL Lymph # (Auto) 3600 (2959-4089) /uL [place] # (Auto) 600 (0-900) /uL Eos # (Auto) 400 (0-450) /uL Baso # (Auto) 100 (0-100) /uL PT 12.5 (10.1-12.7) SECONDS INR 1.1 (0.9-1.3) APTT 35 (26-36) SECONDS Sodium 140 (137-145) mmol/L Potassium 4.1 (3.4-5.1) mmol/L Chloride 105 (98-107) mmol/L Carbon Dioxide 28 (22-32) mmol/L BUN 12 (9-20) mg/dL Creatinine 0.81 (0.66-1.25) mg/dL Estimated GFR > 60 (>60) mL/min BUN/Creatinine Ratio 14.8 (6-22) Glucose 120 H (70-100) mg/dL Calcium 9.1 (8.4-10.2) mg/dL Magnesium 2.2 (1.6-2.3) mg/dL Total Bilirubin 0.7 (0.2-1.3) mg/dL AST 43 (17-59) IU/L ALT 64 H (<50) IU/L Alkaline Phosphatase 83 (38-126) U/L Total Creatine Kinase 29 L (55-170) U/L Troponin I < 0.012 (0.01-0.034) ng/mL Total Protein 7.5 (6.3-8.2) g/dL Albumin 4.4 (3.5-5.0) g/dL Globulin 3.1 (1.7-4.1) g/dL Albumin/Globulin Ratio 1.4 (1.0-2.8) Lipase 69 (23-300) U/L / Range/Units 14:10 WBC (4.5-11.0) X10^3/uL RBC (4.5-5.9) X10^6/uL Hgb (13.5-17.5) g/dL Hct (41-53) % MCV (80-100) fL MCH (26-34) PG MCHC (30-36) % RDW (11.6-14.8) % Plt Count (150-400) X10^3/uL Neut % (Auto) (50-75) % Lymph % (Auto) (25-40) % [place] % (Auto) (3-14) % Eos % (Auto) (2-4) % Baso % (Auto) (0-2) % Neut # (Auto) (3010-2117) /uL Lymph # (Auto) (1128-6804) /uL [place] # (Auto) (0-900) /uL Eos # (Auto) (0-450) /uL Baso # (Auto) (0-100) /uL PT (10.1-12.7) SECONDS INR (0.9-1.3) APTT (26-36) SECONDS Sodium (137-145) mmol/L Potassium (3.4-5.1) mmol/L Chloride (98-107) mmol/L Carbon Dioxide (22-32) mmol/L BUN (9-20) mg/dL Creatinine (0.66-1.25) mg/dL Estimated GFR (>60) mL/min BUN/Creatinine Ratio (6-22) Glucose (70-100) mg/dL Calcium (8.4-10.2) mg/dL Magnesium (1.6-2.3) mg/dL Total Bilirubin (0.2-1.3) mg/dL AST (17-59) IU/L ALT (<50) IU/L Alkaline Phosphatase (38-126) U/L Total Creatine Kinase (55-170) U/L Troponin I < 0.012 (0.01-0.034) ng/mL Total Protein (6.3-8.2) g/dL Albumin (3.5-5.0) g/dL Globulin (1.7-4.1) g/dL Albumin/Globulin Ratio (1.0-2.8) Lipase (23-300) U/L ECG Data Interpretation: EKG independently reviewed by myself at [1700] Dr. Kim saw this EKG at 11:23, reveals normal sinus rhythm at [63] bpm with regular axis and intervals. No STEMI, ST segment changes, arrhythmia, or acute ischemic changes. EKG independently reviewed by myself at [1700] Dr. Kim saw this patient's ECG at 1417 reveals normal sinus rhythm at [61] bpm with regular axis and intervals. No STEMI, ST segment changes, arrhythmia, or acute ischemic changes. Mank: Sinus rhythm rate of 63 VT 124 QRS 88 QTC 464. No acute ST elevation nor depression appreciated, left anterior fascicular block. Patient has prior from 10/27/2021 which appears similar. EKG 2., rate of 61, VT 126 QRS of 90 QTC of 400, no acute or dynamic changes appreciated. Left anterior fascicular block present. Discharge Plan Departure Patient Disposition: Home Clinical Impression: Panic attacks, Chest wall pain, Dyspepsia Instructions: Understanding and Managing the Stress Response, Panic Disorder, Alprazolam Activity Restrictions/Additional Instructions: *You have been diagnosed with most likely is panic attack, this does not appear to be cardiac or any other organ causing problems for your body. Please use omeprazole for the next 2 weeks to help decrease your acid production, you may continue it thereafter if it helps you with your gas feeling. Please use alprazolam as needed for acute episodes of anxiety and stress while initiating positive coping strategies. I applied your efforts. I hope you feel better soon, it was a pleasure to meet you, please return for new worsening symptoms and follow-up with Aliyah CANTU regarding your mood medication and see if this is adequate for you. I have given you a prescription of omeprazole, please take this every morning on an empty stomach to see if it helps with your increased acid production. *What to do: *Please continue to take your regular medications as directed. [x ] New medication prescriptions sent to your pharmacy: [Tony ] [ ] New medication written as a paper prescription [ ] No new medications given *Please call and schedule follow up with your primary care provider in 2-3 days, at least for an update. Let them know you were seen in the Emergency Department for the above problem. We will electronically transmit a record of today's note if your PCP or specialist is in our system. *If you do not have a primary care provider please contact [phone] to establish care with one of the [facility] primary care providers. *Return to the Emergency Department for worsening symptoms, inability to keep liquids down, fever greater than 101F, chills, or other concerning symptom. Prescriptions: New omeprazole 20 mg capsule,delayed release(DR/EC) 20 mg PO DAILY Qty: 30 0RF alprazolam 0.5 mg tablet 0.5 mg PO BID PRN (Reason: anxiety) Qty: 14 0RF No Action cephalexin [Keflex] 500 MG capsule 500 mg PO QID Qty: 28 0RF Referrals: Aliyah Zimmerman ARNP [Primary Care Provider] - Stand Alone Forms: Patient Portal/API <Yuko Kim DO - Last Filed: 11/02/22 01:43> [facility] [place] [facility] Attending Marthaature Attestation: I was immediately available in the department for consultation. Documentation has been reviewed.
[2022-10-23] MEDS: ALPRAZolam 0.5 MG TABLET PO (17:09)
[2022-10-23] MEDS: PANTOPRAZOLE DR 20 MG TABLET PO (17:09)
== END 2022-10-23 17:31 | disposition home or self-care (01) ==
PROVIDERS: Emergency Medicine; Emergency Provider Nurse Practitioner Critical Care Medicine; PCP Nurse Practitioner
DX: F41.0 Panic disorder [episodic paroxysmal anxiety] (principal); R10.13 Epigastric pain; R07.89 Other chest pain
CPT/HCPCS: 36415; 71045; 80053; 82550; 83690; 83735; 84484; 85025; 85610; 85730; 93005; 99283; 99284